=== PATIENT | female | born 1980 | race Caucasian/White ===

== ENCOUNTER → 2017-05-21 | Outpatient (CLI) | payer OTHER | LOC: BMCIMAGING 10:27 | PROVIDERS: ATTEND Internal Medicine | DX: R05 Cough (principal) ==

== ENCOUNTER 2018-05-14 10:01 | Emergency (ER) | payer OTHER ==
--- NOTE | 2018-05-14 10:37 | EDPHY ---
H & P Stated Complaint: cp/sob x 2 days /30 wks Time Seen by Provider: 05/14/18 10:12 HPI/ROS: CHIEF COMPLAINT: Chest pain HISTORY OF PRESENT ILLNESS: 37-year-old female 30 weeks by ultrasound presents with chest pain and shortness of breath. She awoke in the middle of the night with moderate substernal chest discomfort. The discomfort lasted approximately an hour and then completely resolved. She has also had ongoing shortness of breath throughout the , gradually increasing as the progresses. No URI symptoms or cough. No leg swelling or pain. REVIEW OF SYSTEMS: complete 10 point ROS reviewed and is negative except for the noted elements in the HPI - Personal History LMP (Females 10-55): Current Tetanus Diphtheria and Acellular Pertussis (TDAP): Yes - Medical/Surgical History Hx Asthma: No Hx Chronic Respiratory Disease: No Hx Diabetes: No Hx Cardiac Disease: No Hx Renal Disease: No Hx Cirrhosis: No Hx Alcoholism: No Hx HIV/AIDS: No Hx Splenectomy or Spleen Trauma: No Other PMH: - Social History Smoking Status: Never smoked - Physical Exam Exam: General Appearance: Alert, pleasant Eyes: Pupils equal and round, no conjunctival pallor or injection ENT, Mouth: Mucous membranes moist Neck: Normal inspection Respiratory: Lungs are clear to auscultation Cardiovascular: Regular rate and rhythm Gastrointestinal: Abdomen is soft, gravid Neurological: A&O, nonfocal, normal gait Skin: Warm and dry, no rash Extremities: Nontender, no pedal edema, negative Homans sign Psychiatric: Mood and affect normal Constitutional: Initial Vital Signs Temperature (C) 36.9 C 05/14/18 10:04 Heart Rate 92 05/14/18 10:04 Respiratory Rate 18 05/14/18 10:04 Blood Pressure 122/71 H 05/14/18 10:04 O2 Sat (%) 94 05/14/18 10:04 O2 Delivery Mode Room Air Allergies/Adverse Reactions: hydrocodone Allergy (Verified 05/14/18 10:03) Home Medications: Medication Instructions Recorded 05/14/18 Medical Decision Making - Diagnostics EKG Interpretation: EKG interpreted by me reveals normal sinus rhythm, rate 95, low voltage in the anterior leads, T-wave flattening in leads 3 and AVF. Interpretation: Borderline EKG Imaging Results: Imaging Impressions Chest X-Ray 05/14/18 10:34 Impression: No pneumonia. Extremity Venous Study 05/14/18 10:34 Impression: Negative for bilateral lower extremity DVT. Findings and recommendations discussed with MATILDE ANN at 1134 hour, 2018. ED Course/Re-evaluation: This patient presents after an episode of chest discomfort last night. The pain has completely resolved and is most likely secondary to GERD. Since the chest pain has resolved and vital signs are normal, including oxygen saturation , I doubt that the chest pain is related to a pulmonary embolism, although she is certainly at increased risk during . I discussed this with the patient. Will proceed with bilateral lower extremity ultrasounds and chest x- ray. A D-dimer was not ordered because it will likely be elevated because of . Results discussed with the patient. Chest x-ray is unremarkable and bilateral lower extremity ultrasounds are normal. The patient remains asymptomatic. Likely GERD. I feel that she is safe and stable for discharge. Warning signs discussed. Differential Diagnosis: Differential diagnosis includes though it is not limited to GERD, pneumonia, pneumothorax, pulmonary embolism, aortic dissection, pericarditis, acute coronary syndrome. - Data Points Laboratory Results: Laboratory Results 05/14/18 10:28 05/14/18 10:28 05/14/18 05/14/18 10:28 10:28 WBC 12.68 10^3/uL H 10^3/uL (3.80-9.50) RBC 3.93 10^6/uL L 10^6/uL (4.18-5.33) Hgb 12.4 g/dL L g/dL (12.6-16.3) Hct 36.2 % L % (38.0-47.0) MCV 92.1 fL fL (81.5-99.8) MCH 31.6 pg pg (27.9-34.1) MCHC 34.3 g/dL g/dL (32.4-36.7) RDW 12.9 % % (11.5-15.2) Plt Count 167 10^3/uL 10^3/uL (150-400) MPV 10.6 fL fL (8.7-11.7) Neut % (Auto) Not Reported Lymph % (Auto) Not Reported [place] % (Auto) Not Reported Eos % (Auto) Not Reported Baso % (Auto) Not Reported Nucleat RBC Rel Count Not Reported Absolute Neuts (auto) Not Reported Absolute Lymphs (auto) Not Reported Absolute Monos (auto) Not Reported Absolute Eos (auto) Not Reported Absolute Basos (auto) Not Reported Absolute Nucleated RBC Not Reported Immature Gran % Not Reported Seg Neutrophils % 76.3 % % Band Neutrophils % 7.9 % % Lymphocytes % 7.9 % % Monocytes % 6.9 % % Eosinophils % 0.0 % % Basophils % 0.0 % % Metamyelocytes % 0.0 % % Myelocytes % 1.0 % % Promyelocytes % 0.0 % % Blast Cells % 0.0 % % Immature Gran # Not Reported Absolute Seg Neuts 9.67 10^3/uL H 10^3/uL (1.70-6.50) Absolute Band Neuts 1.00 10^3/uL H 10^3/uL (0.00-0.70) Absolute Lymphocytes 1.00 10^3/uL 10^3/uL (1.00-3.00) Absolute Monocytes 0.87 10^3/uL H 10^3/uL (0.30-0.80) Absolute Eosinophils 0.00 10^3/uL L 10^3/uL (0.03-0.40) Absolute Basophils 0.00 10^3/uL L 10^3/uL (0.02-0.10) Absolute Metamyelocyte 0.00 10^3/mL 10^3/mL (0.00-0.00) Absolute Myelocytes 0.13 10^3/mL H 10^3/mL (0.00-0.00) Absolute Promyelocytes 0.00 10^3/uL 10^3/uL (0.00-0.00) Absolute Plasma Cells 0.00 10^3/uL 10^3/uL (0.00-0.00) Nucleated RBCs 0 /100 WBC /100 WBC (0-0) RBC/WBC/PLT Morphology NORMAL (NORMAL) Absolute Blast Cells 0.00 10^3/uL 10^3/uL (0.00-0.00) Plasma Cells % 0.0 % % Platelet Estimate ADEQUATE (ADEQ) Sodium 135 mEq/L mEq/L (135-145) Potassium 3.9 mEq/L mEq/L (3.5-5.2) Chloride 108 mEq/L mEq/L (97-110) Carbon Dioxide 21 mEq/l L mEq/l (22-31) Anion Gap 6 mEq/L mEq/L (6-14) BUN 9 mg/dL mg/dL (7-23) Creatinine 0.5 mg/dL L mg/dL (0.6-1.0) Estimated GFR > 60 Glucose 91 mg/dL mg/dL (70-100) Calcium 9.5 mg/dL mg/dL (8.5-10.4) Departure - Departure Disposition: Home, Routine, Self-Care Clinical Impression: Chest pain Condition: Good Instructions: Chest Pain (ED) Additional Instructions: Your chest x-ray and leg ultrasounds are normal today. There is no sign of a blood clot. I suspect that you had an episode of gastroesophageal reflux during the middle the night. I suggest that you eat small meals and do not eat within 2 hr of bedtime. Please return for worsening symptoms or any concerns. Referrals: Sandy Curtis MD [Primary Care Provider] - As per Instructions (Call to make an appointment.)
[2018-05-14 10:41] LABS: PLATELET COUNT 167 10^3/uL (150-400)
[2018-05-14 12:06] VITALS: BP 128/78
--- NOTE | 2018-05-14 14:46 | CPEKG ---
Test Reason : OPEN Blood Pressure : / mmHG Vent. Rate : 095 BPM Atrial Rate : 094 BPM P-R Int : 122 ms QRS Dur : 074 ms QT Int : 342 ms P-R-T Axes : 027 025 009 degrees QTc Int : 430 ms Sinus rhythm Low voltage, precordial leads Borderline T abnormalities, anterior leads Confirmed by Nicole Hernandez ([id number]) on 05/14/2018 2:45:57 PM Referred By: Confirmed By:Nicole Hernandez
== END 2018-05-14 12:06 | disposition home or self-care (01) ==
DX: R07.9 Chest pain, unspecified (principal); R06.02 Shortness of breath; Z3A.30 30 weeks gestation of pregnancy

== ENCOUNTER 2018-07-19 14:47 | Inpatient (IN) | payer OTHER ==
[2018-07-19] MEDS ORDERED: LIDOCAINE 1% 300 MG/30 ML SDV ONE (15:20)
[2018-07-19] MEDS ORDERED: OLIVE OIL 118 ML BTL MISC ONE (15:20)
[2018-07-19] MEDS ORDERED: OXYTOCIN 10 UNIT/ML VIAL ONE (15:21)
[2018-07-19] MEDS ORDERED: TERBUTALINE SULFATE 1 MG/ML VIAL ONE (15:21)
[2018-07-19] MEDS ORDERED: MISOPROSTOL 200 MCG TAB ONE (15:21)
[2018-07-19] MEDS ORDERED: AMMONIA AROMATIC 1 EACH AMP IH ONE (15:21)
[2018-07-19] MEDS ORDERED: MISOPROSTOL 200 MCG TAB PO PRN (15:45)
[2018-07-19] MEDS ORDERED: OLIVE OIL 118 ML BTL MISC PRN (15:45)
[2018-07-19] MEDS ORDERED: AMMONIA AROMATIC 1 EACH AMP IH PRN (15:45)
[2018-07-19] MEDS ORDERED: LR 1,000 ML IV PRN (15:45)
[2018-07-19] MEDS ORDERED: EPSOM SALT 454 GM TP PRN (15:45)
[2018-07-19] MEDS ORDERED: OXYTOCIN/RINGERS LACTATE 1,000 ML IV PRN (15:45)
[2018-07-19] MEDS ORDERED: LIDOCAINE 1% 300 MG/30 ML SDV SC PRN (15:45)
[2018-07-19] MEDS ORDERED: IBUPROFEN 600 MG TAB PO PRN (15:45)
[2018-07-19] MEDS ORDERED: TERBUTALINE SULFATE 1 MG/ML VIAL IV PRN (15:45)
--- NOTE | 2018-07-19 15:45 | PDGENHP ---
History and Physical - Chief Complaint IOL, Variable decels on FHR - History of Present Illness Aliza is a 37 yo G1 today at 40w1d by MAYTE of 07/18/18 who was seen in clinic for routine visit and was found to have recurrent variable decels on her NST. SCE was 2-3cm and had her membranes stripped. KEVIN was WNL by bedside US. Pt counseled on options for observation or induction and comfortable with IOL which was our recommendation. complicated by AMA and Rubella non-immune status. Failed her Glucola but passed 3hrGTT. labs: O pos Antibody neg RPR neg Rubella EQUIVOCAL Hep B neg HIV neg TSH WNL 1st tri UDS neg UCx neg GCC neg Glucola 158, passed 3hr GBS NEGATIVE [place] and VZV IMMUNE History Information - Allergies/Home Medication List Allergies/Adverse Reactions: hydrocodone Allergy (Verified 05/14/18 10:03) Home Medications: 05/14/18 [Last Taken Unknown] I have personally reviewed and updated: family history, medical history, social history, surgical history Past Medical History: AMA - Surgical History Additional surgical history: L foot Fx 2014, Plates/screws removed 2015, [place] teeth - Family History Positive for: non-pertinent - Social History Smoking Status: Never smoked Drug Use: Marijuana (Rarely, not during ) Review of Systems Review of Systems: ROS: 10pt was reviewed & negative except for what was stated in HPI & below Physical Exam Physical Exam: Appears comfortable, calm, pleasant. Abd gravid, longitudinal lie. LE's +1 pitting edema. FHR 140s, mod elfego, accels present, variable decels present - but not with every contraction [place] q 5-10 minutes, not feeling them SCE 3-4/70/-2 engaged, AROM performed with clear fluid Lab Data & Imaging Review 07/19/18 15:45 Assessment & Plan Assessment: 37 yo G1 at 40w1d here for IOL due to non-reassuring status on NST. IOL: - Pit and AROM now on admission. - Pt reports her mother and sister all needed c-sections for arrest of labor. - GBS negative. General: - CEFM due to variables, currently Category II on arrival. - Would eventually like epidural. - Rh pos, VZV immune. - Rubella NON-immune (equivocal) - will need PP MMR. JM
[2018-07-19] MEDS ORDERED: LR 500 ML IV PRN (15:46)
[2018-07-19] MEDS ORDERED: OXYTOCIN/RINGERS LACTATE 30 UNIT/500 ML BAG IV ONE (15:55)
[2018-07-19 16:00] LABS: PLATELET COUNT 162 10^3/uL (150-400)
[2018-07-19] MEDS ORDERED: OXYTOCIN/RINGERS LACTATE 500 ML IV SCH (16:00)
[2018-07-19] MEDS ORDERED: fentaNYL 2MCG/ML/BUP 0.1% RTU 100 ML BAG EP ONE ×2 (19:58→20:30)
[2018-07-19] MEDS ORDERED: PHENYLEPHRINE HCL 100 MCG/ML SYR ONE (19:58)
--- NOTE | 2018-07-19 20:45 | PREANESOB ---
Obstetric Pre-Anesthesia Info - General Info Proposed Procedure: ZEN : 1 Para: 0 MAYTE: 07/18/18 Gestational Age: 40 week(s) and 1 day(s) - Info Status: Full Term, May Monitors: External FHR Pattern: Reassuring - Labor Status Indications for Labor Analgesia: Pain Control Labor Epidural: Proposed Anesthesia Allergies/Adverse Reactions: Allergy/AdvReac Type Severity Reaction Status Date / Time hydrocodone Allergy Verified 05/14/18 10:03 Home Medications: Medication Instructions Recorded 05/14/18 Visit Medications: Generic Name Dose Route Start Last Admin Trade Name Freq PRN Reason Stop Dose Admin Ammonia (Aromatic Spirit) 1 each 07/19/18 15:45 Ammonia Aromatic IH 07/29/18 15:44 ONCE PRN Fainting Lactated Ringer's 1,000 mls @ 0 mls/hr 07/19/18 15:45 Lr IV 07/20/18 15:44 PRN PRN SEE PROTOCOL CONDITIONS Protocol Per Protocol Oxytocin/Lactated Ringer's 1,000 mls @ 0 mls/hr 07/19/18 15:45 Pitocin 20 Units/Lr (Premix) IV PRN PRN Post bleeding As Directed Lactated Ringer's 500 mls @ 500 mls/hr 07/19/18 15:46 Lr IV 07/20/18 15:46 PRN PRN Maternal Hypotension Oxytocin/Lactated Ringer's 500 mls @ 0 mls/hr 07/19/18 16:00 Pitocin 30 Units/Lr (Premix) IV 01/15/19 15:59 CONT CHAPIN Protocol Per Protocol Ibuprofen 600 mg 07/19/18 15:45 Motrin PO ONCE PRN post , pain Lidocaine HCl 300 mg 07/19/18 15:45 Lidocaine Hcl 1% SC 01/15/19 15:44 ONCE PRN episiotomy Magnesium Sulfate 454 gm 07/19/18 15:45 Epsom Salt TP 01/15/19 15:44 Q1H PRN perineal discomfort Misoprostol 800 - 1,000 mcg 07/19/18 15:45 Cytotec PO 01/15/19 15:44 ONCE PRN Vaginal Atony/Bleeding [place] Oil 118 ml 07/19/18 15:45 Sweet Oil MISC 01/15/19 15:44 ONCE PRN perineal massage Terbutaline Sulfate 0.25 mg 07/19/18 15:45 Brethine IV 01/15/19 15:44 ONCE PRN Tachysystole Discontinued Medications Generic Name Dose Route Start Last Admin Trade Name Alan PRN Reason Stop Dose Admin Ammonia (Aromatic Spirit) Confirm 07/19/18 15:21 Ammonia Aromatic Administered 07/19/18 15:22 Dose 1 each IH .STK-MED ONE Citalopram Hydrobromide 30 mg 07/19/18 22:00 Celexa PO 01/15/19 21:59 DAILY CHAPIN Fentanyl/Bupivacaine HCl Confirm 07/19/18 19:58 Fentanyl/Bupivacaine/Ns 2 Mcg/Ml 0.1% (Premix Administered 07/19/18 19:59 Dose 100 ml EP .STK-MED ONE Fentanyl/Bupivacaine HCl Confirm 07/19/18 20:30 Fentanyl/Bupivacaine/Ns 2 Mcg/Ml 0.1% (Premix Administered 07/19/18 20:31 Dose 100 ml EP .STK-MED ONE Lidocaine HCl Confirm 07/19/18 15:20 Lidocaine Hcl 1% Administered 07/19/18 15:21 Dose 300 mg .ROUTE .STK-MED ONE Misoprostol Confirm 07/19/18 15:21 Cytotec Administered 07/19/18 15:22 Dose 1,000 mcg .ROUTE .STK-MED ONE [place] Oil Confirm 07/19/18 15:20 Sweet Oil Administered 07/19/18 15:21 Dose 118 ml MISC .STK-MED ONE Oxytocin Confirm 07/19/18 15:21 Pitocin Administered 07/19/18 15:22 Dose 40 unit .ROUTE .STK-MED ONE Oxytocin/Lactated Ringer's Confirm 07/19/18 15:55 Pitocin 30 Units/Lr (Premix) Administered 07/19/18 15:56 Dose 30 unit IV .STK-MED ONE Phenylephrine HCl Confirm 07/19/18 19:58 Neosynephrine Administered 07/19/18 19:59 Dose 1,000 mcg .ROUTE .STK-MED ONE Terbutaline Sulfate Confirm 07/19/18 15:21 Brethine Administered 07/19/18 15:22 Dose 1 mg .ROUTE .STK-MED ONE - Anesthesia History Response to Local Anesthetics: Normal Anesthesia & Operative History: No Prior Problems Family Anesthesia History: Not Applicable - Social History Substance Use/Abuse: Denies - Vital Signs Height/Weight (Nursing): Height 152.4 cm Weight 86.183 kg - Focused Exam Neck exam: FROM Mallampati Score: Class 3 Mouth exam: normal dental/mouth exam Pulmonary: no respiratory distress, no rales or rhonchi, clear to auscultation Cardiovascular: regular rate and rhythym, no murmur, rub, or gallop Labs: 07/19/18 15:45 Patient ABO/Rh O POSITIVE 07/19/18 15:45
[2018-07-19] MEDS ORDERED: BUPIVACAINE 0.25% 30 ML SDV ONE (20:54)
[2018-07-19] MEDS ORDERED: LR 500 ML IV SCH (21:00)
[2018-07-19] MEDS ORDERED: fentaNYL 100 MCG/2 ML INJ ONE (21:26)
[2018-07-19] MEDS ORDERED: CITALOPRAM 20 MG TAB PO SCH (22:00)
--- NOTE | 2018-07-20 00:06 | POSTANESTH ---
Post Anesthetic Evaluation Cardiovascular Status: Normal, Stable, Similar to Pre-Op Cond Respiratory Status: Normal, Stable, Similar to Pre-op Cond. Level of Consciousness/Mental Status: Can Participate in Eval, Alert and Oriented Pain Control: Adequate, Prn Tx Ordered Nausea/Vomiting Control: Adequate, Prn Tx Ordered Complications Possibly Related to Anesthesia: None Noted (Had to replace catheter (no analgesia first time). Placement very difficult in midline but successful on 1st pass Rt paramedian approach. Good analgesia.)
[2018-07-20] MEDS ORDERED: ONDANSETRON 4 MG/2 ML VIAL IVP PRN (01:13)
[2018-07-20] MEDS ORDERED: ONDANSETRON 4 MG/2 ML VIAL ONE (01:15)
[2018-07-20] MEDS ORDERED: BUPIVACAINE 0.25% 30 ML SDV ONE (01:40)
[2018-07-20] MEDS ORDERED: fentaNYL 100 MCG/2 ML INJ ONE ×2 (01:40→04:13)
[2018-07-20] MEDS: fentaNYL 2MCG/ML/BUP 0.1% RTU 100 ML EP SCH ×2 (02:05→08:34)
[2018-07-20] MEDS: PHENYLEPHRINE HCL 100 MCG/ML SYR IVP PRN ×3 (05:29→06:23)
--- NOTE | 2018-07-20 06:44 | OBPROG ---
Labor Progress Note Assessment/Plan: Assessment: 37 yo G1 at 40w2d here for IOL due to non-reassuring status on NST. IOL: - Pit and AROM with clear fluid shortly after admission. - Now comfortable with epidural, /-1, IUPC placed. Multiple attempts required for effective epidural. - Pt reports her mother and sister all needed c-sections for arrest of labor. - GBS negative. General: - CEFM due to variables, currently Category II. - Rh pos, VZV immune. - Rubella NON-immune (equivocal) - will need PP MMR. JM Subjective/Intrapartum Course: So happy to be finally comfortable with epidural. Sleeping soundly. Objective: 07/19/18 15:45 Patient ABO/Rh O POSITIVE 07/19/18 15:45 - SVE Dilation (cm): 6 Effacement (%): 90 Station: -1 Membranes: AROM Amniotic Fluid Color: Clear - Contraction Pattern Assessment Current Contraction Pattern: Regular - FHR Assessment Mya FHR (bpm): 125 FHR Pattern Variability: Moderate FHR Category: 2 - Procedures Non-surgical Procedures: Amniotomy, IUPC (Placed during this exam, placed anteriorly ) Oxytocin Orders Assessment - Pre-Induction/Augmentation Assessment Gestational Age: 40 week(s) and 1 day(s) ICD10 Worksheet Patient Problems: Problems Problem Status Onset Non-reassuring electronic monitoring tracing Acute Obesity Acute - ICD10 Problem Qualifiers (1) Non-reassuring electronic monitoring tracing (2) Obesity Qualifiers: Obesity type: unspecified obesity type Obesity classification: adult class 1 (BMI 30 - 34.9) Serious obesity comorbidity presence: without serious comorbidity Body mass index: unspecified BMI Qualified Code(s): E66.9 - Obesity, unspecified
--- NOTE | 2018-07-20 08:58 | OBPROG ---
Labor Progress Note Assessment/Plan: Assessment: Plan: Subjective/Intrapartum Course: So happy to be finally comfortable with epidural. Sleeping soundly. 07/20/18 08:56 patient comfortable with epidural. pitocin is at 26 mu. contractions adequate. sve 6/80/-2. discussed slow progress with patient. discussed risk of prolonged high dose pitocin. status reassuring. will recheck in two hour. if no change with the new adequate contractions will discuss c section further. questions answered. Objective: 07/19/18 15:45 Patient ABO/Rh O POSITIVE 07/19/18 15:45 - SVE Dilation (cm): 6 Effacement (%): 80 Station: -2 Membranes: AROM Amniotic Fluid Color: Clear - Contraction Pattern Assessment Current Contraction Pattern: Regular - Procedures Non-surgical Procedures: Amniotomy, IUPC (Placed during this exam, placed anteriorly ) Oxytocin Orders Assessment - Pre-Induction/Augmentation Assessment Gestational Age: 40 week(s) and 1 day(s) ICD10 Worksheet Patient Problems: Problems Problem Status Onset Non-reassuring electronic monitoring tracing Acute Obesity Acute
[2018-07-20] MEDS ORDERED: LR 500 ML IV ONE (11:18)
[2018-07-20] MEDS ORDERED: ceFAZolin 2 GM/DEXTROSE 100 ML IV ONE (11:18)
--- NOTE | 2018-07-20 11:18 | OBPROG ---
Labor Progress Note Assessment/Plan: Assessment: Plan: Subjective/Intrapartum Course: So happy to be finally comfortable with epidural. Sleeping soundly. 07/20/18 08:56 patient comfortable with epidural. pitocin is at 26 mu. contractions adequate. sve 6/80/-2. discussed slow progress with patient. discussed risk of prolonged high dose pitocin. status reassuring. will recheck in two hour. if no change with the new adequate contractions will discuss c section further. questions answered. 07/20/18 11:17 patient has been resting in multiple positions. pitocin is 26. no further change in cervix. long discussion about management options. will proceed with primary c section for arrest of dilation and descent. status reassuring. anesthesia notified. Objective: 07/19/18 15:45 Patient ABO/Rh O POSITIVE 07/19/18 15:45 - SVE Dilation (cm): 6 Effacement (%): 80 Station: -2 Membranes: AROM Amniotic Fluid Color: Clear - Contraction Pattern Assessment Current Contraction Pattern: Regular - FHR Assessment May FHR Pattern Variability: Moderate FHR Category: 1 - Procedures Non-surgical Procedures: Amniotomy, IUPC (Placed during this exam, placed anteriorly ) Oxytocin Orders Assessment - Pre-Induction/Augmentation Assessment Gestational Age: 40 week(s) and 1 day(s) ICD10 Worksheet Patient Problems: Problems Problem Status Onset Non-reassuring electronic monitoring tracing Acute Obesity Acute
[2018-07-20] MEDS ORDERED: LR 1,000 ML IV SCH (11:30)
[2018-07-20] MEDS ORDERED: CITRIC ACID/SODIUM CITRATE 30 ML UDCUP PO ONE (11:45)
[2018-07-20] MEDS ORDERED: AZITHROMYCIN IV 500 MG in NS 250 ML IV ONE (11:45)
--- NOTE | 2018-07-20 11:49 | POSTANESTH ---
Post Anesthetic Evaluation Cardiovascular Status: Normal, Stable Respiratory Status: Normal, Stable Level of Consciousness/Mental Status: Can Participate in Eval, Alert and Oriented Pain Control: Adequate, Prn Tx Ordered Notes: Pt with persistent nausea prior to and throughout C/S. This nausea continues in PACU at the same level. Unresponsive to IVF, pressors, Zofran, and Bicitra.
[2018-07-20] MEDS ORDERED: CITRIC ACID/SODIUM CITRATE 30 ML UDCUP ONE (11:53)
--- NOTE | 2018-07-20 11:54 | PREANESOB ---
Obstetric Pre-Anesthesia Info - General Info Proposed Procedure: primary C/S for failed induction of labor for dates/ variables NPO Start Time: 22:00 (solids, having clears until 11:45 today) : 1 Para: 0 MAYTE: 07/18/18 Gestational Age: 40 week(s) and 1 day(s) - Info Status: Full Term, May Monitors: Internal - Labor Status Cervical Dilation per last OB SVE: 6 Station per last OB SVE: -2 Amniotic Fluid Color: Clear Pitocin: In Use PIH: No Magnesium Sulfate in Use: No Indications for Labor Analgesia: Induction of Labor Section History: Primary Indications for Current Section: Arrest of Dilation Labor Epidural: Yes Anesthesia ROS: GERD during and before back pain with 3rd trimester CTS bilaterally during heavy snoring during Allergies/Adverse Reactions: Allergy/AdvReac Type Severity Reaction Status Date / Time hydrocodone Allergy Verified 05/14/18 10:03 Home Medications: Medication Instructions Recorded 05/14/18 Visit Medications: Generic Name Dose Route Start Last Admin Trade Name Tomq PRN Reason Stop Dose Admin Ammonia (Aromatic Spirit) 1 each 07/19/18 15:45 Ammonia Aromatic IH 07/29/18 15:44 ONCE PRN Fainting Lactated Ringer's 1,000 mls @ 0 mls/hr 07/19/18 15:45 07/20/18 05:29 Lr IV 07/20/18 15:44 1,000 mls PRN PRN Administration SEE PROTOCOL CONDITIONS Protocol Per Protocol Oxytocin/Lactated Ringer's 1,000 mls @ 0 mls/hr 07/19/18 15:45 Pitocin 20 Units/Lr (Premix) IV PRN PRN Post bleeding As Directed Lactated Ringer's 500 mls @ 500 mls/hr 07/19/18 15:46 Lr IV 07/20/18 15:46 PRN PRN Maternal Hypotension Oxytocin/Lactated Ringer's 500 mls @ 0 mls/hr 07/19/18 16:00 Pitocin 30 Units/Lr (Premix) IV 01/15/19 15:59 CONT CHAPIN Protocol Per Protocol Fentanyl/Bupivacaine HCl 100 mls @ 0 mls/hr 07/19/18 21:00 07/20/18 08:34 Fentanyl/Bupivacaine/Ns 2 Mcg/Ml 0.1% (Premix EP 07/29/18 20:59 100 mls CONT CHAPIN Administration Protocol As Directed Lactated Ringer's 500 mls @ 0 mls/hr 07/19/18 21:00 07/19/18 20:43 Lr IV 01/15/19 20:59 500 mls CONT CHAPIN Administration As Directed Lactated Ringer's 1,000 mls @ 125 mls/hr 07/20/18 11:30 Lr IV 07/21/18 11:29 CONT CHAPIN Azithromycin 500 mg/ Sodium 255 mls @ 255 mls/hr 07/20/18 11:45 Chloride IV 07/20/18 12:44 EDNOW ONE Protocol Ibuprofen 600 mg 07/19/18 15:45 Motrin PO ONCE PRN post , pain Lidocaine HCl 300 mg 07/19/18 15:45 Lidocaine Hcl 1% SC 01/15/19 15:44 ONCE PRN episiotomy Magnesium Sulfate 454 gm 07/19/18 15:45 Epsom Salt TP 01/15/19 15:44 Q1H PRN perineal discomfort Misoprostol 800 - 1,000 mcg 07/19/18 15:45 Cytotec PO 01/15/19 15:44 ONCE PRN Vaginal [place] Oil 118 ml 07/19/18 15:45 Sweet Oil MISC 01/15/19 15:44 ONCE PRN perineal massage Ondansetron HCl 4 mg 07/20/18 01:13 07/20/18 01:27 Zofran IVP 01/16/19 01:12 4 mg Q4HRS PRN Administration Nausea/Vomiting, Can't Take PO Phenylephrine HCl 100 mcg 07/19/18 20:45 07/20/18 06:23 Neosynephrine IVP 01/15/19 20:44 100 mcg .Q2M PRN Administration Hypotension Terbutaline Sulfate 0.25 mg 07/19/18 15:45 Brethine IV 01/15/19 15:44 ONCE PRN Tachysystole Discontinued Medications Generic Name Dose Route Start Last Admin Trade Name Freq PRN Reason Stop Dose Admin Ammonia (Aromatic Spirit) Confirm 07/19/18 15:21 Ammonia Aromatic Administered 07/19/18 15:22 Dose 1 each IH .STK-MED ONE Bupivacaine HCl Confirm 07/19/18 20:54 Sensorcaine 0.25% Sdv Administered 07/19/18 20:55 Dose 30 ml .ROUTE .STK-MED ONE Bupivacaine HCl Confirm 07/20/18 01:40 Sensorcaine 0.25% Sdv Administered 07/20/18 01:41 Dose 30 ml .ROUTE .STK-MED ONE Citalopram Hydrobromide 30 mg 07/19/18 22:00 Celexa PO 01/15/19 21:59 DAILY CHAPIN Fentanyl Confirm 07/19/18 21:26 Sublimaze Administered 07/19/18 21:27 Dose 100 mcg .ROUTE .STK-MED ONE Fentanyl Confirm 07/20/18 01:40 Sublimaze Administered 07/20/18 01:41 Dose 100 mcg .ROUTE .STK-MED ONE Fentanyl Confirm 07/20/18 04:13 Sublimaze Administered 07/20/18 04:14 Dose 100 mcg .ROUTE .STK-MED ONE Fentanyl/Bupivacaine HCl Confirm 07/19/18 19:58 Fentanyl/Bupivacaine/Ns 2 Mcg/Ml 0.1% (Premix Administered 07/19/18 19:59 Dose 100 ml EP .STK-MED ONE Fentanyl/Bupivacaine HCl Confirm 07/19/18 20:30 Fentanyl/Bupivacaine/Ns 2 Mcg/Ml 0.1% (Premix Administered 07/19/18 20:31 Dose 100 ml EP .STK-MED ONE Cefazolin Sodium/Dextrose 100 mls @ 200 mls/hr 07/20/18 11:18 Ancef IV 07/20/18 11:47 ONCALL ONE Protocol Lactated Ringer's 500 mls @ 0 mls/hr 07/20/18 11:18 Lr IV 07/20/18 11:19 ONCE ONE As Directed Lidocaine HCl Confirm 07/19/18 15:20 Lidocaine Hcl 1% Administered 07/19/18 15:21 Dose 300 mg .ROUTE .STK-MED ONE Misoprostol Confirm 07/19/18 15:21 Cytotec Administered 07/19/18 15:22 Dose 1,000 mcg .ROUTE .STK-MED ONE [place] Oil Confirm 07/19/18 15:20 Sweet Oil Administered 07/19/18 15:21 Dose 118 ml MISC .STK-MED ONE Ondansetron HCl Confirm 07/20/18 01:15 Zofran Administered 07/20/18 01:16 Dose 4 mg .ROUTE .STK-MED ONE Oxytocin Confirm 07/19/18 15:21 Pitocin Administered 07/19/18 15:22 Dose 40 unit .ROUTE .STK-MED ONE Oxytocin/Lactated Ringer's Confirm 07/19/18 15:55 Pitocin 30 Units/Lr (Premix) Administered 07/19/18 15:56 Dose 30 unit IV .STK-MED ONE Phenylephrine HCl Confirm 07/19/18 19:58 Neosynephrine Administered 07/19/18 19:59 Dose 1,000 mcg .ROUTE .STK-MED ONE Terbutaline Sulfate Confirm 07/19/18 15:21 Brethine Administered 07/19/18 15:22 Dose 1 mg .ROUTE .STK-MED ONE - Anesthesia History Response to Local Anesthetics: Normal Family Anesthesia History: Negative - Social History Substance Use/Abuse: Denies - Vital Signs Latest Vital Signs (Nursing): see nursing documentation Height/Weight (Nursing): Height 152.4 cm Weight 86.183 kg - Focused Exam Neck exam: FROM Mallampati Score: Class 2 Mouth exam: normal dental/mouth exam Pulmonary: clear to auscultation Cardiovascular: regular rate and rhythym Labs: 07/19/18 15:45 Patient ABO/Rh O POSITIVE 07/19/18 15:45 - Plan Consent Signed and on Chart: Yes Patient/Guardian Understands and Agrees to Plan: Yes General Comments: Will use epidural in situ for C/S. Pt amenable to neuraxial morphine.
[2018-07-20] MEDS ORDERED: LIDOCAINE 1% 300 MG/30 ML SDV ONE (12:05)
[2018-07-20] MEDS ORDERED: OXYTOCIN 100 UNITS/10 ML VIAL ONE (12:05)
[2018-07-20] MEDS ORDERED: morphINE PF 5 MG/10 ML INJ ONE (12:06)
[2018-07-20] MEDS ORDERED: LIDO/EPI 2% **for epidural** 20 ML SDV ONE (12:08)
[2018-07-20] MEDS ORDERED: fentaNYL 100 MCG/2 ML INJ IVP PRN (13:19)
[2018-07-20] MEDS ORDERED: PHENYLEPHRINE HCL 100 MCG/ML SYR IVP PRN (13:19)
[2018-07-20] MEDS ORDERED: NALOXONE HCL 0.4 MG/ML INJ IVP PRN ×2 (13:19→13:21)
[2018-07-20] MEDS ORDERED: HYDROCODONE/APAP 5/325 TAB PO PRN (13:58)
[2018-07-20] MEDS ORDERED: BISACODYL 10 MG SUPP PR PRN (13:58)
[2018-07-20] MEDS ORDERED: POLYETHYLENE GLYCOL 3350 17 GM PKT PO PRN (13:58)
[2018-07-20] MEDS ORDERED: LACTULOSE 20 GM/30 ML UDCUP PO PRN (13:58)
[2018-07-20] MEDS ORDERED: PROMETHAZINE HCL 25 MG/ML INJ IVP PRN (13:58)
[2018-07-20] MEDS ORDERED: MAGNESIUM HYDROXIDE 30 ML UDCUP PO PRN (13:58)
[2018-07-20] MEDS ORDERED: OXYCODONE/APAP 5/325 TAB PO PRN (13:58)
[2018-07-20] MEDS ORDERED: PROMETHAZINE HCL 25 MG/ML INJ ONE (14:00)
--- NOTE | 2018-07-20 14:05 | OBDEL ---
Info Type: Primary Presentation at Delivery: Vertex (Occiput poserio) L&D Analgesia/Anesthesia Type: Epidural GBS+: No Intrapartum Medications: Generic Name Dose Route Start Last Admin Trade Name Alan PRN Reason Stop Dose Admin Lactated Ringer's 1,000 mls @ 0 mls/hr 07/19/18 15:45 07/20/18 05:29 Lr IV 07/20/18 15:44 1,000 mls PRN PRN Administration SEE PROTOCOL CONDITIONS Protocol Per Protocol Fentanyl/Bupivacaine HCl 100 mls @ 0 mls/hr 07/19/18 21:00 07/20/18 08:34 Fentanyl/Bupivacaine/Ns 2 Mcg/Ml 0.1% (Premix EP 07/29/18 20:59 100 mls CONT CHAPIN Administration Protocol As Directed Lactated Ringer's 500 mls @ 0 mls/hr 07/19/18 21:00 07/19/18 20:43 Lr IV 01/15/19 20:59 500 mls CONT CHAPIN Administration As Directed Ondansetron HCl 4 mg 07/20/18 01:13 07/20/18 01:27 Zofran IVP 01/16/19 01:12 4 mg Q4HRS PRN Administration Nausea/Vomiting, Can't Take PO Phenylephrine HCl 100 mcg 07/19/18 20:45 07/20/18 06:23 Neosynephrine IVP 01/15/19 20:44 100 mcg .Q2M PRN Administration Hypotension Discontinued Medications Generic Name Dose Route Start Last Admin Trade Name Alan PRN Reason Stop Dose Admin Cefazolin Sodium/Dextrose 100 mls @ 200 mls/hr 07/20/18 11:18 07/20/18 12:07 Ancef IV 07/20/18 11:47 100 mls ONCALL ONE Administration Protocol Azithromycin 500 mg/ Sodium 255 mls @ 255 mls/hr 07/20/18 11:45 07/20/18 12: 32 Chloride IV 07/20/18 12:44 255 mls EDNOW ONE Administration Protocol - Hospital Course Intrapartum: So happy to be finally comfortable with epidural. Sleeping soundly. 07/20/18 08:56 patient comfortable with epidural. pitocin is at 26 mu. contractions adequate. sve 6/80/-2. discussed slow progress with patient. discussed risk of prolonged high dose pitocin. status reassuring. will recheck in two hour. if no change with the new adequate contractions will discuss c section further. questions answered. 07/20/18 11:17 patient has been resting in multiple positions. pitocin is 26. no further change in cervix. long discussion about management options. will proceed with primary c section for arrest of dilation and descent. status reassuring. anesthesia notified. Indications for Delivery: Elective Vaginal Delivery - Labor and Delivery Onset of Contractions Date: 07/19/18 Onset of Contractions Time: 17:30 Rupture of Membranes Date: 07/19/18 Rupture of Membranes Time: 16:37 Amniotic Fluid Color: Clear Placenta Delivery Date: 07/20/18 Placenta Delivery Time: 12:55 Total Hours of Labor: 19 Non-surgical Procedures: Amniotomy, IUPC (Placed during this exam, placed anteriorly ) Operative Report - Delivery Pre-op Diagnoses: IUP 40 2/7 weeks, suspicious testing, arrest of dilation and descent Post-op Diagnoses: same as pre op plus nuchal cord x 1 and occiput posterior, post atony History of Prior Section: No Nulliparous Prior to Delivery: Yes Indications for Current Section: Arrest of Dilation Procedure: Unscheduled, Low Transverse Surgeon: Claudia Frias Belt Weaver: Jonna Boateng Anesthesiologist: Ana Cristina Villavicencio Complications: Nucal Cord, Other (Specify) (post atony resolved with pitocin and methergine) EBL: 800 Data MAYTE: 07/18/18 Gestational Age: 40 week(s) and 2 day(s) May Delivery Date: 07/20/18 Delivery Time: 12:52 Sex of Infant: Male Score (1 Min): 9 Score (5 Min): 9 ICD10 Worksheet Patient Problems: Problems Problem Status Onset Non-reassuring electronic monitoring tracing Acute Obesity Acute
[2018-07-20] MEDS ORDERED: KETOROLAC 30 MG/1 ML SDV ONE (14:16)
[2018-07-20] MEDS: KETOROLAC 30 MG/1 ML SDV IVP SCH ×2 (15:09→21:11)
[2018-07-20] MEDS: IBUPROFEN 600 MG TAB PO SCH ×2 (16:06→22:00)
[2018-07-20] MEDS: ACETAMINOPHEN 325 MG TAB PO SCH ×2 (18:48→21:12)
[2018-07-20] MEDS: SENNOSIDES/DOCUSATE SODIUM TAB PO SCH (21:11)
[2018-07-21] MEDS ORDERED: OXYCODONE/APAP 5/325 TAB PO PRN (01:00)
[2018-07-21] MEDS: KETOROLAC 30 MG/1 ML SDV IVP SCH ×2 (03:19→09:34)
[2018-07-21] MEDS: ACETAMINOPHEN 325 MG TAB PO SCH ×3 (03:19→21:32)
[2018-07-21] MEDS: IBUPROFEN 600 MG TAB PO SCH ×3 (04:00→21:32)
[2018-07-21] MEDS: SENNOSIDES/DOCUSATE SODIUM TAB PO SCH ×2 (08:51→21:33)
--- NOTE | 2018-07-21 08:54 | GOP ---
[f rep st] OPERATIVE REPORT DATE OF OPERATION: 07/20/2018 SURGEON: Claudia Frias DO WAX BLENDER: 1. QUANG Castle, who was proctoring. 2. Jonna Boateng CNM. ANESTHESIA: Spinal with Duramorph. ANESTHESIOLOGIST: Dr. Villavicencio PREOPERATIVE DIAGNOSIS: 1. Intrauterine at 40-2/7 weeks gestation. 2. Arrest of descent and dilation. POSTOPERATIVE DIAGNOSIS: 1. Intrauterine at 40-2/7 weeks gestation. 2. Arrest of descent and dilation. 3. Occiput posterior. 4. Nuchal cord x1. 5. atony. PROCEDURE PERFORMED: Primary low-transverse section. FINDINGS: 1. 7 pound 7 ounce male in the occiput posterior presentation, delivered at 12:52 a.m. s were 9 and 9. 2. Intact placenta with 3-vessel cord, normal ovaries, uterus, and tubes. ESTIMATED BLOOD LOSS: 800 cc. INDICATIONS: Patient is a 37-year-old 1, para 0, who is 40-2/7 weeks gestation. She initiat ed care at [facility] in the first trimester, and had an uncomplicated c ourse. She was seen for her routine OB visit yesterday and states she does not keep track of baby's monitoring. The patient was put on the nonstress test, which showed a reactive nonstress test, but s everal recurrent variable decelerations. A bedside ultrasound showed an adequate KEVIN, but due to pat ient's suspicious testing and postdates, decision was made to send patient over to labor an d delivery for induction of labor. She was started on Pitocin and received an epidural, and then mem branes were artificially ruptured. She went from 4 cm to 6 cm overnight, and in the morning, an intr auterine pressure catheter was then placed without difficulty. Patient had adequate contractions and her Pitocin was up to 26 milliunits, however, she never progressed past 6 cm, despite adequate contr actions. Risks and benefits were reviewed with the patient of proceeding with a primary low-transver se section. Patient was properly consented. DESCRIPTION OF PROCEDURE: The patient was taken to the operating room with intravenous fluids in milton ce. She was given Zithromax and Ancef, and placed on the operating room table, after her spinal anes thesia was re-bolused. George catheter was then placed in order to drain her bladder, and Venodynes w ere placed on her lower extremities. She was then prepped and draped in the normal sterile fashion. Anesthesia was assessed and found to be adequate. A Pfannenstiel skin incision was then made 2 fing erbreadths above the pubic symphysis. The incision was then carried through to the underlying layer of fascia with the Bovie. The fascia was then nicked in the midline, and the fascial incision was ex tended laterally. At the superior aspect, the fascial incision was grasped with Kochers, tented up, and the underlying rectus muscle dissected off bluntly with the Bovie. Attention was then turned to the inferior aspect of the fascial incision, which in a similar fashion was grasped with a Eduarda, te nted up, and the underlying rectus muscle dissected off bluntly and with the Bovie. The rectus muscl e was then in the midline. The peritoneum was then identified, tented up, and entered david ply with the Metzenbaum scissors. The incision was extended superiorly and inferiorly with excellent visualization of the bladder. The bladder blade was then inserted. The vesicouterine peritoneum wa s identified, tented up, and entered sharply with the Metzenbaum scissors. The incision was extended laterally and a bladder flap was created digitally. The bladder blade was then reinserted. The [place] n[place]ky was then incised in low-transverse fashion with the scalpel. The uterine incision was extended l aterally. The 's head was delivered through the incision. It was not well engaged within the pelvis. The was noted to be in the occiput posterior presentation. The viable 7 pound 7 ounc e male was then delivered without difficulty. Delayed cord clamping x1 minute was done. Nuch al cord x1 was reduced at the incision. The cord was then clamped x2 and cut. Cord blood was obtain ed and the was handed off to awaiting nurse practitioner. Intact placenta with 3-ves madai cord delivered without difficulty. The uterus was then exteriorized and cleared of all clots and debris, and wrapped in a moist laparotomy sponge. The bladder blade was then reinserted. The hyste rotomy was closed with 0 Vicryl in a running locked fashion. A second 0 Vicryl stitch was used to im bricate the uterine incision. Hemostasis was assured. Ovaries, uterus, and tubes were unremarkable. The peritoneum was reapproximated with 3-0 Vicryl in a running fashion. The rectus muscle was reap proximated with 2-0 Vicryl in a running fashion. The fascia was closed with 0 Vicryl in a running fa shion. You's tissue was reapproximated with 2-0 Vicryl in a running fashion. Subcuticular tissue was reapproximated with 3-0 Vicryl in a running fashion. Sponge, lap, and needle counts were correc t x2. Patient was transferred to the recovery room in stable condition. /[id number]/MODL
[2018-07-21] MEDS ORDERED: oxyCODONE IR 5 MG TAB PO PRN (09:41)
[2018-07-21] MEDS ORDERED: MEASLES,MUMPS&RUBELLA VACC/PF 0.5 ML VIAL SC ONE (20:53)
--- NOTE | 2018-07-21 20:58 | POSTANESTH ---
Post Anesthetic Evaluation Cardiovascular Status: Normal, Stable Respiratory Status: Normal, Stable Level of Consciousness/Mental Status: Can Participate in Eval, Alert and Oriented Pain Control: Adequate, Prn Tx Ordered Nausea/Vomiting Control: Adequate, Prn Tx Ordered Complications Possibly Related to Anesthesia: None Noted (Duramorph Follow-Up patient doing well no complaints)
[2018-07-21] MEDS: SIMETHICONE 80 MG TAB CHEW PO PRN (21:33)
[2018-07-22] MEDS: ACETAMINOPHEN 325 MG TAB PO SCH ×4 (03:31→22:15)
[2018-07-22] MEDS: IBUPROFEN 600 MG TAB PO SCH ×4 (03:32→22:15)
[2018-07-22] MEDS: HYDROmorphONE/DILAUDID 2 MG TAB PO PRN ×2 (07:25→14:49)
--- NOTE | 2018-07-22 10:57 | OBPP ---
Progress Note Assessment/Plan: Assessment: s/p PCS secondary to arrest of dilation with uterine atony POD #2 - pt is stable Anemia - pt is asymptomatic Rubella nonimmune Plan: Continue routine pp care Will start iron BID MMR vaccine is ordered Discontinue colace secondary to loose stools support as needed Plan for d/c home in am /07/22/18 10:52 Subjective/ Course: 07/22/18 10:54 Pt seen and examined. Doing well, but noted a little more pain this morning, mostly in her lower back. Pain is well controlled with addition of Dilaudid. Pt is OOB, tatum regular diet, voiding without difficulty and has had loose stools x 2 now. Mod lochia. BF is going well. She wants to leave in am as early as possible. Objective: 07/21/18 00:40 Patient ABO/Rh O POSITIVE 07/19/18 15:45 Temp Pulse Resp BP Pulse Ox 36.4 C 91 16 113/74 97 07/22/18 03:30 07/22/18 03:30 07/22/18 03:30 07/22/18 03:30 07/22/18 03:30 Uterine Position/Fundal Height: Umbilicus -2 Uterine Tone: Firm Physical Exam - Physical Exam General Appearance: WD/WN, alert, no apparent distress Respiratory: lungs clear, normal breath sounds Cardiac/Chest: regular rate, rhythm Abdomen: normal bowel sounds, non-tender (appropriate tenderness), soft, incision (C/D/I; well approximated) Extremities: non-tender, normal inspection Skin: normal color, warm/dry Neuro/Psych: alert, normal mood/affect, oriented x 3
[2018-07-22] MEDS ORDERED: FERROUS SULFATE 325 MG TAB PO SCH (11:00)
[2018-07-22] MEDS: SENNOSIDES/DOCUSATE SODIUM TAB PO SCH ×2 (14:33→23:11)
[2018-07-22] MEDS: SIMETHICONE 80 MG TAB CHEW PO PRN (22:15)
[2018-07-22] MEDS: FERROUS SULFATE 325 MG TAB PO SCH (22:15)
[2018-07-23] MEDS: IBUPROFEN 600 MG TAB PO SCH ×2 (03:48→10:16)
[2018-07-23] MEDS: ACETAMINOPHEN 325 MG TAB PO SCH ×3 (03:49→13:29)
[2018-07-23 08:55] VITALS: BP 108/68
[2018-07-23] MEDS: SENNOSIDES/DOCUSATE SODIUM TAB PO SCH (10:14)
[2018-07-23] MEDS: FERROUS SULFATE 325 MG TAB PO SCH (10:16)
[2018-07-23] MEDS: HYDROmorphONE/DILAUDID 2 MG TAB PO PRN (11:47)
--- NOTE | 2018-07-23 12:22 | OBPP ---
Progress Note Assessment/Plan: Assessment: 37 G2lotC3 POD#2 s/p primary LTCS 2/2 arrest of dilation. Doing well. Std post op C/S instructions reviewed. REviewed ssx PP depression. DC home. See summary. Laura Perea MD, FACOG 07/23/18 12:17 Subjective/ Course: 07/22/18 10:54 Pt seen and examined. Doing well, but noted a little more pain this morning, mostly in her lower back. Pain is well controlled with addition of Dilaudid. Pt is OOB, tatum regular diet, voiding without difficulty and has had loose stools x 2 now. Mod lochia. BF is going well. She wants to leave in am as early as possible. 07/23/18 12:20 Pt doing well. Pain well controlled with Dilaudid. Ambulating, voiding and tatum reg diet without issue. Can't remember if she had a BM yesterday. + Flatus. No hx of depression. going well. Desires homegoing. Objective: 07/21/18 00:40 Patient ABO/Rh O POSITIVE 07/19/18 15:45 Temp Pulse Resp BP Pulse Ox 36.6 C 76 18 108/68 97 07/23/18 08:00 07/23/18 08:00 07/23/18 08:00 07/23/18 08:00 07/23/18 08:00 gen - NAD CV - RRR chest - CTAB abd - soft, + BS, fundus firm at u-1 inc - c/d/i no dressing or opal ext - 1+ pitting BLE edema, no calf tenderness breasts - bilaterally nipples soft Uterine Position/Fundal Height: Umbilicus -1 Uterine Tone: Firm
--- NOTE | 2018-07-23 12:27 | OBGCSDC ---
General Delivery Information - General Info : 1 Para: 1 Abortions: 0 Type: Primary L&D Analgesia/Anesthesia Type: Epidural Admission Date: 07/19/18 Labs: Patient ABO/Rh O POSITIVE 07/19/18 15:45 Hct 32.5 % (38.0-47.0) L 07/21/18 00:40 - Hospital Course Intrapartum: So happy to be finally comfortable with epidural. Sleeping soundly. 07/20/18 08:56 patient comfortable with epidural. pitocin is at 26 mu. contractions adequate. sve 80/-2. discussed slow progress with patient. discussed risk of prolonged high dose pitocin. status reassuring. will recheck in two hour. if no change with the new adequate contractions will discuss c section further. questions answered. 07/20/18 11:17 patient has been resting in multiple positions. pitocin is 26. no further change in cervix. long discussion about management options. will proceed with primary c section for arrest of dilation and descent. status reassuring. anesthesia notified. : 07/22/18 10:54 Pt seen and examined. Doing well, but noted a little more pain this morning, mostly in her lower back. Pain is well controlled with addition of Dilaudid. Pt is OOB, tatum regular diet, voiding without difficulty and has had loose stools x 2 now. Mod lochia. BF is going well. She wants to leave in am as early as possible. 07/23/18 12:20 Pt doing well. Pain well controlled with Dilaudid. Ambulating, voiding and tatum reg diet without issue. Can't remember if she had a BM yesterday. + Flatus. No hx of depression. going well. Desires homegoing. Vaginal - Diagnosis Amniotic Fluid Color: Clear - Procedures Non-surgical Procedures: Amniotomy, IUPC (Placed during this exam, placed anteriorly ) - Delivery Providers Surgeon: Claudia Frias Fish Net Maker: Jonna Boateng Anesthesiologist: Ana Cristina Villavicencio - Delivery Indications for Current Section: Arrest of Dilation Non-surgical Procedures: Amniotomy, IUPC (Placed during this exam, placed anteriorly ) Surgical Procedures: Unscheduled, Low Transverse Intra-op Complications: Nucal Cord, Other (Specify) (post atony resolved with pitocin and methergine) EBL: 800 [place] Data MAYTE: 07/18/18 Gestational Age: 40 week(s) and 5 day(s) May Delivery Date: 07/20/18 Delivery Time: 12:52 Sex of : Male Weight (gm): 0 g Score (1 Min): 9 Score (5 Min): 9 Discharge Information - Discharge Information Prescriptions: HYDROmorphone HCL [Dilaudid 2 mg (*)] 2 - 4 mg PO Q4H PRN #30 tab PRN Reason: PAIN, SEVERE ABLE TO TAKE PO Condition: Good Instruction/Follow Up: See Instruction Sheet, Two Weeks (with [facility]), Six Weeks (full physical exam check )
== END 2018-07-23 13:30 | disposition home or self-care (01) | DRG 788 ==
LOC: FLD 14:47 → FOB 07-20 16:18
PROVIDERS: ADMIT Obstetrics & Gynecology; ATTEND Obstetrics & Gynecology
DX: O76 Abnormality in fetal heart rate and rhythm complicating labor and delivery (principal); O62.0 Primary inadequate contractions; O75.89 Other specified complications of labor and delivery; O69.81X0 Labor and delivery complicated by cord around neck, without compression, not applicable or unspecified; O32.8XX0 Maternal care for other malpresentation of fetus, not applicable or unspecified; Z23 Encounter for immunization; Z3A.40 40 weeks gestation of pregnancy; Z37.0 Single live birth
CPT/HCPCS: J0456; J0690; J1885; J2274; J2370; J2405; J2550; J2590; J3010; J3105

== ENCOUNTER → 2018-07-29 | Outpatient (CLI) | payer OTHER | LOC: FLACT 09:59 | PROVIDERS: ATTEND Obstetrics & Gynecology | DX: Z39.1 Encounter for care and examination of lactating mother (principal) | CPT/HCPCS: G0463 ==

== ENCOUNTER → 2018-08-09 | Outpatient (CLI) | payer OTHER | LOC: FLACT 12:21 | PROVIDERS: ATTEND Obstetrics & Gynecology | DX: Z39.1 Encounter for care and examination of lactating mother (principal) | CPT/HCPCS: G0463 ==